=== PATIENT | male | born 1985 | race Hispanic/Latino ===

== ENCOUNTER 2025-04-16 05:33 | Emergency (ER) | payer SELFPAY ==
[2025-04-16 05:38] VITALS: PULSE 92; RESP 18; TEMP 36.6; O2SAT 97
--- NOTE | 2025-04-16 05:59 | ED_ITS ---
HPI - General Adult General Chief complaint: Abdominal Pain Stated complaint: abd pain Time Seen by Provider: 04/16/25 05:55 History of Present Illness HPI narrative: Patient is a 40-year-old gentleman presents emergency department with chief complaint of epigastric abdominal pain. Patient reports he has history of gastritis reports that he takes omeprazole and probiotics the patient states that he does not have a GI doctor and does not have a current primary care doctor patient reports that over last several days he has had worsening discomfort in the epigastric region patient reports that it is not improved by anything the patient reports right now it is mild Related Data Allergies Allergy/AdvReac Type Severity Reaction Status Date / Time No Known Allergies Allergy Verified 04/16/25 06:08 Review of Systems 2 Review of Systems: A 10 system review of systems was completed on the patient and is negative except for what is stated in the HPI. Nursing and ancillary documentation was reviewed. Exam 2 Narrative: GENERAL: Well-appearing, well-nourished, and in no acute distress. HEAD: Normocephalic, atraumatic. EYES: PERRLA and EOMI. ENT: Nares clear, no rhinorrhea or epistaxis. Mucous membranes moist. NECK: Supple. CHEST: Clear to auscultation. No respiratory distress. HEART: Regular rate and rhythm. No murmur heard. Normal peripheral pulses. ABDOMEN: Soft, for all the tenderness to palpation in the epigastric region, nondistended, normal active bowel sounds. EXTREMITIES: Normal range of motion. No edema. SKIN: Warm, dry, no rash. NEURO: No focal deficits. Alert and oriented x3. PSYCH: Normal mood and affect. Course Vital Signs Vital signs: Vital Signs Temperature 36.6 C 04/16/25 05:38 Pulse Rate 92 04/16/25 05:38 Respiratory Rate 18 04/16/25 05:38 Pulse Oximetry 97 04/16/25 05:38 Oxygen Delivery Room Air 04/16/25 05:38 Temperature 36.6 C 04/16/25 06:04 Pulse Rate 80 04/16/25 06:04 Respiratory Rate 16 04/16/25 06:04 Blood Pressure 134/91 H 04/16/25 06:04 Pulse Oximetry 97 04/16/25 06:04 Oxygen Delivery Room Air 04/16/25 05:38 Medical Decision Making [facility] Narrative Medical decision making narrative: Differential diagnosis includes gastritis, pancreatitis, cholecystitis Patient had a normal CBC CMP showed normal liver enzymes lipase was normal The patient was given Protonix and a GI cocktail in the emergency department patient be discharged home on Protonix given a prescription for Carafate and will be referred to primary care Vital Signs Vital Signs: Vital Signs Temperature 36.6 C 04/16/25 05:38 Pulse Rate 92 04/16/25 05:38 Respiratory Rate 18 04/16/25 05:38 Pulse Oximetry 97 04/16/25 05:38 Oxygen Delivery Room Air 04/16/25 05:38 Temperature 36.6 C 04/16/25 06:04 Pulse Rate 80 04/16/25 06:04 Respiratory Rate 16 04/16/25 06:04 Blood Pressure 134/91 H 04/16/25 06:04 Pulse Oximetry 97 04/16/25 06:04 Oxygen Delivery Room Air 04/16/25 05:38 Lab Data 04/16/25 05:57 04/16/25 05:57 Labs: Lab Results 04/16/25 04/16/25 Range/Units 05:57 06:02 WBC 8.6 (4.5-10.0) K/mm3 RBC 5.99 (4.6-6.20) M/mm3 Hgb 17.9 (14.0-18.0) g/dL Hct 52.9 H (42.0-52.0) % MCV 88.3 (80-100) fl MCH 29.9 (26-34) pg MCHC 33.8 (32-36) g/dl RDW 13.1 (11.5-14.5) % Plt Count 264 (150-375) k/mm3 MPV 9.6 (7.4-10.4) fl Immature Gran % (Auto) 0.2 (0-0.5) % Neut % (Auto) 54.0 (45.5-73.1) % Lymph % (Auto) 33.5 (18.3-44.2) % [place] % (Auto) 9.9 H (2.6-8.5) % Eos % (Auto) 1.8 (0-4.4) % Baso % (Auto) 0.6 (0.2-1.2) % Lymph # (Auto) 2.87 (0.9-3.2) K/mm3 [place] # (Auto) 0.9 H (0.1-0.6) K/mm3 Eos # (Auto) 0.2 (0-0.3) K/mm3 Baso # (Auto) 0.1 (0.0-0.1) K/mm3 Abs Immat Gran (auto) 0.02 (0.00-0.031) K/mm3 Absolute Neuts (auto) 4.6 (1.3-6.7) K/mm3 Absolute Nucleated RBC 0.000 (0.0-0.012) K/mm3 Nucleated RBC % 0.0 (0.0-0.2) % Sodium 135 L (137-145) mmol/L Potassium 4.0 (3.4-5.0) mmol/L Chloride 99 (98-107) mmol/L Carbon Dioxide 25 (22-30) mmol/L Anion Gap 11 (4-12) mmol/L BUN 15 (9-20) mg/dL Creatinine 0.96 (0.7-1.3) mg/dL Estim Creat Clear Calc 115 ml/min Estimated GFR > 60 (59 - ) Glucose 100 (65-110) mg/dL Calcium 9.4 (8.4-10.2) mg/dL Total Bilirubin 0.6 (0.2-1.3) mg/dL AST 36 (17-59) U/L ALT 36 (6-50) U/L Alkaline Phosphatase 92 (38-126) U/L Total Protein 8.5 H (6.3-8.2) g/dL Albumin 4.5 (3.5-5.1) g/dL Lipase 81 (23-300) U/L Urine Color Yellow (Yellow) Urine Appearance Clear (Clear) Urine pH 5.5 (5.0-9.0) Ur Specific [place] 1.018 (1.001-1.035) Urine Protein Negative (Negative) mg/dL Urine Glucose (UA) Negative (Negative) mg/dL Urine Ketones Negative (Negative) mg/dL Ur Blood (Man) Negative (Negative) Urine Nitrate Negative (Negative) Urine Bilirubin Negative (Negative) Urine Urobilinogen 0.2 (<2.0) mg/dL Leukocyte Esterase Rfl Negative (Negative) SAEED/UL Discharge Plan Discharge Clinical Impression: Gastritis Patient Disposition: Home Condition: Stable Instructions: Antibiotic Form, Gastritis (ED), Abdominal Pain (ED) Patient Language: Estonian Prescriptions: New pantoprazole [Protonix] 40 mg tablet,delayed release (DR/EC) 40 mg PO HS 28 Days Qty: 28 0RF sucralfate [Carafate] 1 gram tablet 1 g PO Q6H PRN (Reason: abdominal pain) Qty: 40 0RF Follow-up/Referrals: Hitesh Jean Baptiste MD [Physician, Family Practice] UNKNOWN,DOCTOR [Primary Care Provider] Time of Disposition: 06:52
[2025-04-16 06:04] VITALS: BP 134/91; PULSE 80; RESP 16; TEMP 36.6; O2SAT 97
[2025-04-16] MEDS: BELLADONNA ALK/PHENOB ELIX 10 ML, MAG HYDROX/ALUMINUM HYD/SIMETH 30 ML, LIDOCAINE 2% VI... PO (06:09)
[2025-04-16] MEDS: PANTOPRAZOLE SODIUM IV 40 MG VIAL IV PUSH (06:13)
[2025-04-16 06:15] LABS: Hematocrit 52.9 % (42.0-52.0); Hemoglobin 17.9 g/dL (14.0-18.0); Immature Granulocyte Percent A 0.2 % (0-0.5); Lymphocytes Absolute Auto 2.87 K/mm3 (0.9-3.2); Mean Corpuscular HGB Conc 33.8 g/dl (32-36); Mean Corpuscular Hemoglobin 29.9 pg (26-34); Mean Corpuscular Volume 88.3 fl (80-100); Nucleated Red Blood Cells Absolute Auto 0.000 K/mm3 (0.0-0.012); Nucleated Red Blood Cells Perc 0.0 % (0.0-0.2); Platelet Count Result 264 k/mm3 (150-375); Red Blood Count 5.99 M/mm3 (4.6-6.20); White Blood Count 8.6 K/mm3 (4.5-10.0)
[2025-04-16 06:18] LABS: Add Urine Microscopic? NO; Appearance Urine Clear (Clear); Glucose Urine UA Negative (Negative); Leukocyte Esterase Ur Negative LEU/UL (Negative); Nitrate Urine Negative (Negative); Specific Grav Ur 1.018 (1.001-1.035)
[2025-04-16 06:34] LABS: Alanine Aminotransferase 36 U/L (6-50); Albumin Level 4.5 g/dL (3.5-5.1); Alkaline Phosphatase 92 U/L (38-126); Anion Gap 11 mmol/L (4-12); Aspartate Amino Transferase 36 U/L (17-59); Bilirubin,Total 0.6 mg/dL (0.2-1.3); Blood Urea Nitrogen 15 mg/dL (9-20); Calcium 9.4 mg/dL (8.4-10.2); Carbon Dioxide 25 mmol/L (22-30); Chloride 99 mmol/L (98-107); Estimated CRCL calculation 115 ml/min; Estimated Glomerular Filt Rate > 60; Glucose 100 mg/dL (65-110); Lipase 81 U/L (23-300); Potassium 4.0 mmol/L (3.4-5.0); Sodium 135 mmol/L (137-145); Total Protein 8.5 g/dL (6.3-8.2)
[2025-04-16 07:05] VITALS: BP 131/88; PULSE 97; RESP 18; O2SAT 99
== END 2025-04-16 07:10 | disposition home or self-care (01) ==
LOC: ANHED 07:02
PROVIDERS: Emergency Provider Emergency Medicine
DX: K29.50 Unspecified chronic gastritis without bleeding (principal)
CPT/HCPCS: 36415; 80053; 81003; 83690; 85025; 96374; 99284; A9270; J2470

== ENCOUNTER 2025-06-17 05:07 | Emergency (ER) | payer SELFPAY ==
[2025-06-17 05:11] VITALS: PULSE 82; RESP 18; TEMP 36.8; O2SAT 98
[2025-06-17 05:22] VITALS: BP 132/88; PULSE 84; RESP 18; TEMP 36.8; O2SAT 98
--- NOTE | 2025-06-17 05:29 | ED_ITS ---
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 Patient presents to the emergency department with epigastric abdominal discomfort he states feels like his gastritis with increasing pain. Symptoms worsening for 2 days but he has been dealing with this for several months and most of the year. Has not established with Gastroenterology at. Pending his Protonix at home without much relief. No other new symptoms. No recent antibiotics. No significant alcohol intake. No nausea, vomiting presently. No abdominal pain in the lower quadrants or back pain. No traumatic injuries. Was otherwise in his normal state of health. Related Data Allergies Allergy/AdvReac Type Severity Reaction Status Date / Time No Known Allergies Allergy Verified 06/17/25 05:23 Review of Systems 2 Review of Systems: As reviewed above in HPI Exam 2 Narrative: GENERAL: [Well-appearing, well-nourished, and in no acute distress.] HEAD: [Normocephalic, atraumatic.] EYES: [PERRLA and EOMI.] ENT: Nares clear, no rhinorrhea or epistaxis. Mucous membranes moist. NECK: Supple. CHEST: [Clear to auscultation. No respiratory distress.] HEART: [Regular rate and rhythm]. No murmur heard. [Normal peripheral pulses.] ABDOMEN: [Soft, nondistended], [nontender], [No rigidity or guarding] EXTREMITIES: Normal range of motion. [No edema.] SKIN: Warm, dry, no rash. NEURO: [No focal deficits]. 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 Patient presents to the emergency department with epigastric abdominal discomfort he states feels like his gastritis with increasing pain. Symptoms worsening for 2 days but he has been dealing with this for several months and most of the year. Has not established with Gastroenterology at. Pending his Protonix at home without much relief. No other new symptoms. No recent antibiotics. No significant alcohol intake. No nausea, vomiting presently. No abdominal pain in the lower quadrants or back pain. No traumatic injuries. Was otherwise in his normal state of health. Patient is hemodynamically stable with normal vital signs. Examination is benign with a soft nontender nondistended abdomen. Symptoms consistent with gastritis based on physical in history. Will treat him symptomatically and obtain basic laboratory studies and lipase to rule out pancreatitis, LFT elevations, leukocytosis or infectious process. No current indications for advanced CT imaging and will re-evaluate after treatments. Laboratory studies are unremarkable. No leukocytosis or anemia. Normal platelet count. Electrolytes are normal. Normal renal function. Normal glucose. Normal LFTs. Normal lipase, normal urinalysis. Patient had some interval improvement in symptoms after room 1st dose of medications. Requesting additional medications. He was given Toradol for analgesia. He is not unremarkable workup and will need follow-up with Gastroenterology. Given GI referral and safe for discharge with return precautions. Medical Records Attestation: I reviewed the patient's medical records. Lab Data Attestation: I reviewed the patient's lab results. 06/17/25 05:27 06/17/25 05:27 Labs: Lab Results 06/17/25 06/17/25 Range/Units 05:22 05:27 WBC 8.9 (4.5-10.0) K/mm3 RBC 5.88 (4.6-6.20) M/mm3 Hgb 17.6 (14.0-18.0) g/dL Hct 52.0 (42.0-52.0) % MCV 88.4 (80-100) fl MCH 29.9 (26-34) pg MCHC 33.8 (32-36) g/dl RDW 13.0 (11.5-14.5) % Plt Count 268 (150-375) k/mm3 MPV 9.7 (7.4-10.4) fl Immature Gran % (Auto) 0.3 (0-0.5) % Neut % (Auto) 56.8 (45.5-73.1) % Lymph % (Auto) 30.9 (18.3-44.2) % [place] % (Auto) 9.8 H (2.6-8.5) % Eos % (Auto) 1.7 (0-4.4) % Baso % (Auto) 0.5 (0.2-1.2) % Lymph # (Auto) 2.74 (0.9-3.2) K/mm3 [place] # (Auto) 0.9 H (0.1-0.6) K/mm3 Eos # (Auto) 0.2 (0-0.3) K/mm3 Baso # (Auto) 0.0 (0.0-0.1) K/mm3 Abs Immat Gran (auto) 0.03 (0.00-0.031) K/mm3 Absolute Neuts (auto) 5.0 (1.3-6.7) K/mm3 Absolute Nucleated RBC 0.000 (0.0-0.012) K/mm3 Nucleated RBC % 0.0 (0.0-0.2) % Sodium 135 L (137-145) mmol/L Potassium 4.2 (3.4-5.0) mmol/L Chloride 99 (98-107) mmol/L Carbon Dioxide 27 (22-30) mmol/L Anion Gap 9 (4-12) mmol/L BUN 9 D (9-20) mg/dL Creatinine 0.88 (0.7-1.3) mg/dL Estim Creat Clear Calc 130 ml/min Estimated GFR > 60 (59 - ) Glucose 106 (65-110) mg/dL Calcium 8.9 (8.4-10.2) mg/dL Total Bilirubin 1.0 (0.2-1.3) mg/dL AST 30 (17-59) U/L ALT 22 (6-50) U/L Alkaline Phosphatase 70 (38-126) U/L Total Protein 8.3 H (6.3-8.2) g/dL Albumin 4.6 (3.5-5.1) g/dL Lipase 105 (23-300) U/L Urine Color Yellow (Yellow) Urine Appearance Clear (Clear) Urine pH 6.0 (5.0-9.0) Ur Specific [place] 1.018 (1.001-1.035) Urine Protein Negative (Negative) mg/dL Urine Glucose (UA) Negative (Negative) mg/dL Urine Ketones Negative (Negative) mg/dL Ur Blood (Man) Negative (Negative) Urine Nitrate Negative (Negative) Urine Bilirubin Negative (Negative) Urine Urobilinogen 0.2 (<2.0) mg/dL Leukocyte Esterase Rfl Negative (Negative) SAEED/UL Discharge Plan Discharge Clinical Impression: Gastritis Patient Disposition: Home Condition: Stable Instructions: Antibiotic Form, Gastritis (DC), Diet for Stomach Ulcers and Gastritis (ED) Additional Instructions: Symptoms consistent with gastritis. You will need to see a senior business process analyst for further evaluation with endoscopy. Please contact the provided senior business process analyst for an outpatient visit. Continue taking your home medications and we have prescribed you some different options for therapies. Return with any emergent or worsening concerns. Patient Language: Panamanian Prescriptions: New famotidine [Pepcid] 20 mg tablet 20 mg PO BID Qty: 20 0RF dicyclomine 20 mg tablet 20 mg PO TID PRN (Reason: abdominal pain) Qty: 14 0RF No Action pantoprazole [Protonix] 40 mg tablet,delayed release (DR/EC) 40 mg PO HS 28 Days Qty: 28 0RF sucralfate [Carafate] 1 gram tablet 1 g PO Q6H PRN (Reason: abdominal pain) Qty: 40 0RF Follow-up/Referrals: Shaun Tyson MD [Physician, Gastroenterology] - 3 Days Referral Note: Recurrent gastritis UNKNOWN,DOCTOR [Primary Care Provider] Time of Disposition: 07:03
[2025-06-17 05:34] LABS: Add Urine Microscopic? NO; Appearance Urine Clear (Clear); Glucose Urine UA Negative (Negative); Leukocyte Esterase Ur Negative LEU/UL (Negative); Nitrate Urine Negative (Negative); Specific Grav Ur 1.018 (1.001-1.035)
[2025-06-17 05:34] LABS: Hematocrit 52.0 % (42.0-52.0); Hemoglobin 17.6 g/dL (14.0-18.0); Immature Granulocyte Percent A 0.3 % (0-0.5); Lymphocytes Absolute Auto 2.74 K/mm3 (0.9-3.2); Mean Corpuscular HGB Conc 33.8 g/dl (32-36); Mean Corpuscular Hemoglobin 29.9 pg (26-34); Mean Corpuscular Volume 88.4 fl (80-100); Nucleated Red Blood Cells Absolute Auto 0.000 K/mm3 (0.0-0.012); Nucleated Red Blood Cells Perc 0.0 % (0.0-0.2); Platelet Count Result 268 k/mm3 (150-375); Red Blood Count 5.88 M/mm3 (4.6-6.20); White Blood Count 8.9 K/mm3 (4.5-10.0)
[2025-06-17 05:46] VITALS: BP 132/88; PULSE 87; RESP 14; O2SAT 98
[2025-06-17 05:50] LABS: Alanine Aminotransferase 22 U/L (6-50); Albumin Level 4.6 g/dL (3.5-5.1); Alkaline Phosphatase 70 U/L (38-126); Anion Gap 9 mmol/L (4-12); Aspartate Amino Transferase 30 U/L (17-59); Bilirubin,Total 1.0 mg/dL (0.2-1.3); Blood Urea Nitrogen 9 mg/dL (9-20); Calcium 8.9 mg/dL (8.4-10.2); Carbon Dioxide 27 mmol/L (22-30); Chloride 99 mmol/L (98-107); Estimated CRCL calculation 130 ml/min; Estimated Glomerular Filt Rate > 60; Glucose 106 mg/dL (65-110); Lipase 105 U/L (23-300); Potassium 4.2 mmol/L (3.4-5.0); Sodium 135 mmol/L (137-145); Total Protein 8.3 g/dL (6.3-8.2)
[2025-06-17] MEDS: MAG HYDROX/AL HYDROX/SIMETH 30 ML UDC PO (06:00)
[2025-06-17] MEDS: SUCRALFATE SUSP 100 MG/ML 10 ML UDC 1000 MG PO (06:00)
[2025-06-17 06:31] VITALS: BP 114/82; PULSE 83; RESP 18; O2SAT 95
[2025-06-17] MEDS: KETOROLAC 30 MG/ML VIAL (*BKC) IV PUSH (07:01)
[2025-06-17 07:33] VITALS: BP 114/82; PULSE 77; RESP 14; O2SAT 99
== END 2025-06-17 07:36 | disposition home or self-care (01) ==
PROVIDERS: Emergency Provider Student in an Organized Health Care Education/Training Program
DX: K29.70 Gastritis, unspecified, without bleeding (principal)
CPT/HCPCS: 36415; 80053; 81003; 83690; 85025; 96374; 99284; A9270; J1885

== ENCOUNTER 2025-06-18 16:48 | Emergency (ER) | payer SELFPAY ==
--- NOTE | ~2025-06-18 | XR_ITS ---
EXAMINATION: XR chest 2V 06/18/2025 19:22 INDICATION: Lower chest pain PROCEDURE: 2 view chest COMPARISON: No prior studies for comparison. FINDINGS: The lungs are clear. The cardiomediastinal silhouette is within normal limits. There are no pleural effusions. There is no pneumothorax suspected. IMPRESSION: 1: NO ACUTE CARDIOPULMONARY DISEASE. Reviewed, dictated and finalized at location O. LINER MAKER
--- NOTE | ~2025-06-18 | CT_ITS ---
EXAMINATION: CT abdomen pelvis w con DATE: 06/18/2025 20:35 INDICATION: Abdominal pain TECHNIQUE: Computed tomography (CT) of the abdomen and pelvis was performed with 100 cc Omnipaque 350 intravenous contrast. The dose-length product was 924.17 mGy-cm. Automated exposure control and iterative reconstruction technique were employed. COMPARISON: None. FINDINGS: Lung bases are unremarkable. No significant pleural or pericardial effusion. Heart size normal. No significant vascular abnormality. No lymphadenopathy. No free air or free fluid. Normal appendix. Fatty infiltration of the liver. The spleen, pancreas, adrenal glands and kidneys are unremarkable. No significant vascular abnormality. Gallbladder is present. No acute osseous abnormality. No pelvic masses or fluid collections. No hydronephrosis. IMPRESSION: 1. No acute abdominal abnormality. Reviewed, dictated and finalized at location O. ERIZER TENDER
[2025-06-18 17:01] VITALS: BP 137/87; PULSE 80; RESP 16; TEMP 36.8; O2SAT 99
--- NOTE | 2025-06-18 18:48 | ECG_ITS ---
Test Date: 2025-06-18 19:00:16 Measurements Intervals [place] Rate: 76 P: 14 [place]: 132 QRS: 36 QRSD: 94 T: 40 QT: 365 QTc: 413 Interpretive Statements SINUS RHYTHM No previous ECG available for comparison Electronically Signed On 06-18-2025 21:28:21 JEWELRY SALES COORDINATOR by Shimon Gomez M.D.
--- NOTE | 2025-06-18 18:51 | ED_ITS ---
HPI - Abdominal Pain General Chief Complaint: Abdominal Pain Stated Complaint: abdominal pain Time Seen by Provider: 06/18/25 18:13 History of Present Illness HPI narrative: Patient is a 40-year-old male who presents to the ER with gastritis symptoms. He reports he was seen in the the ER 2 days ago with the same symptoms. Patient reports he was given prescriptions for medications, which he has picked up, but they have not helped relieve his symptoms. He endorses midsternal pain that worsens when he lays flat. Patient also endorses a feeling of abdominal fullness. He reports he is a cigarette smoker and only drinks a small amount of alcohol. Patient endorses a history of GERD but denies any other medical history relevant to this ER visit. He denies any back pain, urinary symptoms, or vomiting. Patient does not endorse nausea and has been unable to keep anything down for the past 2 days. Related Data Allergies Allergy/AdvReac Type Severity Reaction Status Date / Time No Known Allergies Allergy Verified 06/17/25 05:23 Review of Systems 2 Review of Systems: All systems reviewed & are unremarkable except as noted in HPI and below Exam 2 Narrative: GENERAL: Well appearing, well-nourished, non-toxic, in no acute distress. HEAD: Normocephalic, atraumatic. NECK: Supple. No adenopathy, no masses. RESPIRATORY: Airway patent, respirations nonlabored. Clear to auscultation bilaterally, no rales, rhonchi, wheezing. CARDIOVASCULAR: Regular rate and rhythm without murmurs, rubs, or gallops. Peripheral pulses 2+ and equal bilaterally. ABDOMINAL: Soft, nontender, nondistended, no hepatosplenomegaly. Normoactive BS. MUSCULOSKELETAL: Moves all extremities. Strength/ROM intact without gross deformities. SKIN: Warm, dry, normal color. No rashes. NEURO: A&O X3. Speech clear. Cranial nerves II-XII intact. No ataxic movements. PSYCHIATRIC: Appropriate mood and affect. Normal interaction. Course Vital Signs Vital signs: Vital Signs Temperature 36.8 C 06/18/25 17:01 Pulse Rate 80 06/18/25 17:01 Respiratory Rate 16 06/18/25 17:01 Blood Pressure 137/87 06/18/25 17:01 Pulse Oximetry 99 06/18/25 17:01 Temperature 36.8 C 06/18/25 17:01 Pulse Rate 75 06/18/25 18:57 Respiratory Rate 15 06/18/25 18:57 Blood Pressure 137/88 06/18/25 18:57 Pulse Oximetry 97 06/18/25 18:57 MDM - Abdominal Pain MDM Narrative Medical decision making narrative: Patient is a 40-year-old male who presents to the ER with gastritis symptoms. He reports he was seen in the the ER 2 days ago with the same symptoms. Patient reports he was given prescriptions for medications, which he has picked up, but they have not helped relieve his symptoms. He endorses midsternal pain that worsens when he lays flat. Patient also endorses a feeling of abdominal fullness. He reports he is a cigarette smoker and only drinks a small amount of alcohol. Patient endorses a history of GERD but denies any other medical history relevant to this ER visit. He denies any back pain, urinary symptoms, or vomiting. Patient does not endorse nausea and has been unable to keep anything down for the past 2 days. Labs Ordered: CBC, CMP, D-dimer, troponin, lactic acid, lipase, UA Imaging Ordered: Chest x-ray, CT abdomen pelvis Medications Ordered: 1 L normal saline IV bolus, Toradol 30 mg IV, Zofran 4 mg IV, Pepcid 20 mg IV, Protonix 40 mg IV, GI cocktail Results: Patient's CT scan indicates Lung bases are unremarkable. No significant pleural or pericardial effusion. Heart size normal. No significant vascular abnormality. No lymphadenopathy. No free air or free fluid. Normal appendix. Fatty infiltration of the liver. The spleen, pancreas, adrenal glands and kidneys are unremarkable. No significant vascular abnormality. Gallbladder is present. No acute osseous abnormality. No pelvic masses or fluid collections. No hydronephrosis. Diagnosis: GERD, gastritis Consults: Gastroenterology (already established) Patient Education/Shared MDM: Results of lab work and imaging shared with patient. They endorses improvement of symptoms following medication administration. Patient strongly advised to maintain hydration status upon discharge and follow-up with their PCP as soon as possible. They will be discharged home with a prescription for . Strict return precautions provided. Patient verbalized understanding and is in agreement with plan. Vital signs stable at time of discharge. All questions answered. Differential Diagnosis Differential diagnosis: Likely abdominal pain, calculus of kidney, constipation, gastroenteritis, pancreatitis and small bowel obstruction Lab Data Attestation: I reviewed the patient's lab results. 06/18/25 19:09 06/18/25 19:09 Labs: Lab Results 06/18/25 06/18/25 Range/Units 19:09 19:27 WBC 10.3 H (4.5-10.0) K/mm3 RBC 5.63 (4.6-6.20) M/mm3 Hgb 17.1 (14.0-18.0) g/dL Hct 49.4 (42.0-52.0) % MCV 87.7 (80-100) fl MCH 30.4 (26-34) pg MCHC 34.6 (32-36) g/dl RDW 12.9 (11.5-14.5) % Plt Count 257 (150-375) k/mm3 MPV 9.6 (7.4-10.4) fl Immature Gran % (Auto) 0.4 (0-0.5) % Neut % (Auto) 64.2 (45.5-73.1) % Lymph % (Auto) 22.6 (18.3-44.2) % [place] % (Auto) 11.2 H (2.6-8.5) % Eos % (Auto) 1.0 (0-4.4) % Baso % (Auto) 0.6 (0.2-1.2) % Lymph # (Auto) 2.33 (0.9-3.2) K/mm3 [place] # (Auto) 1.2 H (0.1-0.6) K/mm3 Eos # (Auto) 0.1 (0-0.3) K/mm3 Baso # (Auto) 0.1 (0.0-0.1) K/mm3 Abs Immat Gran (auto) 0.04 H (0.00-0.031) K/mm3 Absolute Neuts (auto) 6.6 (1.3-6.7) K/mm3 Absolute Nucleated RBC 0.000 (0.0-0.012) K/mm3 Nucleated RBC % 0.0 (0.0-0.2) % D-Dimer < 0.27 (<0.48) ug/mL Sodium 134 L (137-145) mmol/L Potassium 3.9 (3.4-5.0) mmol/L Chloride 100 (98-107) mmol/L Carbon Dioxide 28 (22-30) mmol/L Anion Gap 6 (4-12) mmol/L BUN 10 (9-20) mg/dL Creatinine 0.84 (0.7-1.3) mg/dL Estim Creat Clear Calc 114 ml/min Estimated GFR > 60 (59 - ) Glucose 101 (65-110) mg/dL Lactic Acid 0.9 (0.7-2.0) mmol/L Calcium 8.7 (8.4-10.2) mg/dL Total Bilirubin 0.7 (0.2-1.3) mg/dL AST 33 (17-59) U/L ALT 24 (6-50) U/L Alkaline Phosphatase 75 (38-126) U/L Troponin I < 0.012 (0.000-0.034) ng/mL Total Protein 7.8 (6.3-8.2) g/dL Albumin 4.3 (3.5-5.1) g/dL Lipase 54 (23-300) U/L Urine Color Yellow (Yellow) Urine Appearance Clear (Clear) Urine pH 7.0 (5.0-9.0) Ur Specific [place] 1.012 (1.001-1.035) Urine Protein Negative (Negative) mg/dL Urine Glucose (UA) Negative (Negative) mg/dL Urine Ketones Negative (Negative) mg/dL Ur Blood (Man) Negative (Negative) Urine Nitrate Negative (Negative) Urine Bilirubin Negative (Negative) Urine Urobilinogen 0.2 (<2.0) mg/dL Leukocyte Esterase Rfl Negative (Negative) SAEED/UL Imaging Data Attestation: I personally reviewed and interpreted this imaging study as follows: Radiologist's impression: ITS Impressions Chest X-Ray 06/18/25 19:23 IMPRESSION: 1: NO ACUTE CARDIOPULMONARY DISEASE. Abdomen/Pelvis CT 06/18/25 20:38 IMPRESSION: 1. No acute abdominal abnormality. Discharge Plan Discharge Clinical Impression: Gastritis, Gastric reflux Patient Disposition: Home Condition: Stable Instructions: Antibiotic Form, Gastritis (ED), Diet for Stomach Ulcers and Gastritis (ED) Additional Instructions: Please return to the ER with any worsening symptoms. Follow-up with Gastroenterology as soon as possible. Take all medications as prescribed. You may add Tylenol as needed for pain control. Patient Language: Burundian Prescriptions: No Action pantoprazole [Protonix] 40 mg tablet,delayed release (DR/EC) 40 mg PO HS 28 Days Qty: 28 0RF sucralfate [Carafate] 1 gram tablet 1 g PO Q6H PRN (Reason: abdominal pain) Qty: 40 0RF famotidine [Pepcid] 20 mg tablet 20 mg PO BID Qty: 20 0RF dicyclomine 20 mg tablet 20 mg PO TID PRN (Reason: abdominal pain) Qty: 14 0RF Follow-up/Referrals: Shaun Tyson MD [Physician, Gastroenterology] UNKNOWN,DOCTOR [Primary Care Provider] Stand Alone Forms: Work/School Release IP
[2025-06-18 18:57] VITALS: BP 137/88; PULSE 75; RESP 15; O2SAT 97
[2025-06-18] MEDS: SODIUM CHLORIDE 0.9% IV 1,000 ML 999 ML IV CONT (19:11)
[2025-06-18] MEDS: ONDANSETRON INJ 4 MG/2 ML VIAL IV PUSH (19:12)
[2025-06-18] MEDS: PANTOPRAZOLE SODIUM IV 40 MG VIAL IV PUSH (19:12)
[2025-06-18] MEDS: FAMOTIDINE 20 MG/2 ML VIAL IV PUSH (19:13)
[2025-06-18] MEDS: KETOROLAC 30 MG/ML VIAL (*BKC) IV PUSH (19:14)
[2025-06-18 19:16] LABS: Hematocrit 49.4 % (42.0-52.0); Hemoglobin 17.1 g/dL (14.0-18.0); Immature Granulocyte Percent A 0.4 % (0-0.5); Lymphocytes Absolute Auto 2.33 K/mm3 (0.9-3.2); Mean Corpuscular HGB Conc 34.6 g/dl (32-36); Mean Corpuscular Hemoglobin 30.4 pg (26-34); Mean Corpuscular Volume 87.7 fl (80-100); Nucleated Red Blood Cells Absolute Auto 0.000 K/mm3 (0.0-0.012); Nucleated Red Blood Cells Perc 0.0 % (0.0-0.2); Platelet Count Result 257 k/mm3 (150-375); Red Blood Count 5.63 M/mm3 (4.6-6.20); White Blood Count 10.3 K/mm3 (4.5-10.0)
[2025-06-18 19:39] LABS: Troponin I < 0.012 ng/mL (0.000-0.034)
[2025-06-18 19:42] LABS: Alanine Aminotransferase 24 U/L (6-50); Albumin Level 4.3 g/dL (3.5-5.1); Alkaline Phosphatase 75 U/L (38-126); Anion Gap 6 mmol/L (4-12); Aspartate Amino Transferase 33 U/L (17-59); Bilirubin,Total 0.7 mg/dL (0.2-1.3); Blood Urea Nitrogen 10 mg/dL (9-20); Calcium 8.7 mg/dL (8.4-10.2); Carbon Dioxide 28 mmol/L (22-30); Chloride 100 mmol/L (98-107); Estimated CRCL calculation 114 ml/min; Estimated Glomerular Filt Rate > 60; Glucose 101 mg/dL (65-110); Lipase 54 U/L (23-300); Potassium 3.9 mmol/L (3.4-5.0); Sodium 134 mmol/L (137-145); Total Protein 7.8 g/dL (6.3-8.2)
[2025-06-18 19:50] LABS: Add Urine Microscopic? NO; Appearance Urine Clear (Clear); Glucose Urine UA Negative (Negative); Leukocyte Esterase Ur Negative LEU/UL (Negative); Nitrate Urine Negative (Negative); Specific Grav Ur 1.012 (1.001-1.035)
[2025-06-18] MEDS: BELLADONNA ALK/PHENOB ELIX 10 ML, MAG HYDROX/ALUMINUM HYD/SIMETH 30 ML, LIDOCAINE 2% VI... PO (22:39)
[2025-06-18 22:46] VITALS: BP 132/75; PULSE 74; RESP 20; TEMP 36.7; O2SAT 100
== END 2025-06-18 22:47 | disposition home or self-care (01) ==
PROVIDERS: Emergency Provider Registered Nurse
DX: K29.70 Gastritis, unspecified, without bleeding (principal); K21.9 Gastro-esophageal reflux disease without esophagitis; F17.210 Nicotine dependence, cigarettes, uncomplicated
CPT/HCPCS: 36415; 71046; 74177; 80053; 81003; 83605; 83690; 84484; 85025; 85380; 93005; 96361; 96374; 96375; 99284; A9270; J1885; J2405; J2470; J7030; Q9967

== ENCOUNTER 2025-06-20 08:32 | Emergency (ER) | payer SELFPAY ==
[2025-06-20] VITALS (8 sets, daily range): BP systolic 114–134; BP diastolic 79–89; PULSE 64–79; RESP 12–18; TEMP 36.8; O2SAT 94–99
--- NOTE | ~2025-06-20 | US_ITS ---
ULTRASOUND ABDOMEN LIMITED (RIGHT UPPER QUADRANT) Clinical History: epigastric abdominal pain Comparison: CT abdomen and pelvis 06/18/2025 Technique: Right upper quadrant sonography Findings: Liver: Enlarged. Echogenic. No intrahepatic biliary ductal dilatation. Normal hepatopedal flow main portal vein. Common Duct: Normal caliber. 5 mm. Gallbladder: No stones. No wall thickening. No pericholecystic fluid. Pancreas: Obscured by bowel gas. IMPRESSION: 1. No acute findings. Reviewed, dictated and finalized at location [facility]. [facility] IMPRESSION: 1. No acute findings.
[2025-06-20 09:59] LABS: Hematocrit 46.8 % (42.0-52.0); Hemoglobin 16.1 g/dL (14.0-18.0); Immature Granulocyte Percent A 0.3 % (0-0.5); Lymphocytes Absolute Auto 2.18 K/mm3 (0.9-3.2); Mean Corpuscular HGB Conc 34.4 g/dl (32-36); Mean Corpuscular Hemoglobin 30.3 pg (26-34); Mean Corpuscular Volume 88.1 fl (80-100); Nucleated Red Blood Cells Absolute Auto 0.000 K/mm3 (0.0-0.012); Nucleated Red Blood Cells Perc 0.0 % (0.0-0.2); Platelet Count Result 243 k/mm3 (150-375); Red Blood Count 5.31 M/mm3 (4.6-6.20); White Blood Count 7.6 K/mm3 (4.5-10.0)
[2025-06-20 10:00] LABS: Add Urine Microscopic? NO; Appearance Urine Clear (Clear); Glucose Urine UA Negative (Negative); Leukocyte Esterase Ur Negative LEU/UL (Negative); Nitrate Urine Negative (Negative); Specific Grav Ur 1.012 (1.001-1.035)
--- NOTE | 2025-06-20 10:27 | ECG_ITS ---
Test Date: 2025-06-20 11:13:47 Measurements Intervals [place] Rate: 64 P: 20 [place]: 122 QRS: 46 QRSD: 94 T: 46 QT: 392 QTc: 407 Interpretive Statements SINUS RHYTHM Compared to ECG 06/18/2025 19:00:16 No significant changes Electronically Signed On 06-20-2025 11:32:23 TRAP PULLER by Luis Jimenez M.D.
[2025-06-20 10:37] LABS: Alanine Aminotransferase 27 U/L (6-50); Albumin Level 4.2 g/dL (3.5-5.1); Alkaline Phosphatase 70 U/L (38-126); Anion Gap 6 mmol/L (4-12); Aspartate Amino Transferase 33 U/L (17-59); Bilirubin,Total 0.6 mg/dL (0.2-1.3); Blood Urea Nitrogen 12 mg/dL (9-20); Calcium 8.6 mg/dL (8.4-10.2); Carbon Dioxide 28 mmol/L (22-30); Chloride 100 mmol/L (98-107); Estimated CRCL calculation 138 ml/min; Estimated Glomerular Filt Rate > 60; Glucose 102 mg/dL (65-110); Lipase 54 U/L (23-300); Potassium 3.7 mmol/L (3.4-5.0); Sodium 134 mmol/L (137-145); Total Protein 7.3 g/dL (6.3-8.2)
--- NOTE | 2025-06-20 10:39 | ED_ITS ---
HPI - Abdominal Pain General Chief Complaint: Abdominal Pain Stated Complaint: abdominal pain Time Seen by Provider: 06/20/25 09:18 Source: patient Mode of arrival: ambulatory Limitations: language barrier (Using stratus physician's aide) History of Present Illness HPI narrative: This is a 40-year-old male that presents to the emergency department for epigastric abdominal pain. Ongoing over the last couple of months. Reports the pain is intermittent in nature, feels bloated. He has been taking pantoprazole without relief. He does have an appointment to see GI, but it is not until July. Reports some nausea and vomiting. Denies fevers. Related Data Allergies Allergy/AdvReac Type Severity Reaction Status Date / Time No Known Allergies Allergy Verified 06/20/25 08:50 Review of Systems 2 Review of Systems: All systems reviewed & are unremarkable except as noted in HPI and below PMFSH Social History Social History (Updated 06/20/25 @ 10:45 by Maty Singh PA-C) Alcohol intake: never Exam 2 Narrative: GENERAL: Well-appearing, well-nourished, and in no acute distress. HEAD: Normocephalic, atraumatic. EYES: EOMI. CHEST: Clear to auscultation. No respiratory distress. No wheezes rales or rhonchi HEART: Regular rate and rhythm. No murmur heard. Normal peripheral pulses. ABDOMEN: Soft, nondistended, normal active bowel sounds. Mild tenderness to palpation in the epigastrium, without guarding EXTREMITIES: Normal range of motion. No edema. SKIN: Warm, dry, no rash. NEURO: No focal deficits. Alert and oriented x3. PSYCH: Normal mood and affect Course Vital Signs Vital signs: Vital Signs Temperature 98.3 F 06/20/25 08:50 Pulse Rate 70 06/20/25 08:50 Respiratory Rate 16 06/20/25 08:50 Blood Pressure 134/79 06/20/25 08:50 Pulse Oximetry 98 06/20/25 08:50 Oxygen Delivery Room Air 06/20/25 08:50 Temperature 98.3 F 06/20/25 08:50 Pulse Rate 79 06/20/25 13:51 Respiratory Rate 18 06/20/25 13:51 Blood Pressure 126/87 06/20/25 13:51 Pulse Oximetry 97 06/20/25 13:51 Oxygen Delivery Room Air 06/20/25 08:50 MDM - Abdominal Pain MDM Narrative Medical decision making narrative: Patient presents to the ER for epigastric abdominal pain. Ongoing over the last couple of months. He is afebrile and nontoxic appearing. His vitals are stable. Cbc without leukocytosis. Metabolic panel without concerning findings. Lipase is normal. EKG without acute ST changes, baseline troponin is negative. Urine without evidence of infection. Right upper quadrant ultrasound without acute findings. Patient had CT abdomen pelvis 2 days ago without acute findings. Patient does have follow-up with GI. Will increase his pantoprazole to twice a day. He was given warnings to return to the ER Differential Diagnosis Differential diagnosis: Likely gastroenteritis and other (gastritis, biliary colic, GERD) Lab Data Attestation: I reviewed the patient's lab results. 06/20/25 09:49 06/20/25 09:49 Labs: Lab Results 06/20/25 Range/Units 09:49 WBC 7.6 (4.5-10.0) K/mm3 RBC 5.31 (4.6-6.20) M/mm3 Hgb 16.1 (14.0-18.0) g/dL Hct 46.8 (42.0-52.0) % MCV 88.1 (80-100) fl MCH 30.3 (26-34) pg MCHC 34.4 (32-36) g/dl RDW 12.8 (11.5-14.5) % Plt Count 243 (150-375) k/mm3 MPV 9.5 (7.4-10.4) fl Immature Gran % (Auto) 0.3 (0-0.5) % Neut % (Auto) 58.7 (45.5-73.1) % Lymph % (Auto) 28.6 (18.3-44.2) % [place] % (Auto) 10.6 H (2.6-8.5) % Eos % (Auto) 1.4 (0-4.4) % Baso % (Auto) 0.4 (0.2-1.2) % Lymph # (Auto) 2.18 (0.9-3.2) K/mm3 [place] # (Auto) 0.8 H (0.1-0.6) K/mm3 Eos # (Auto) 0.1 (0-0.3) K/mm3 Baso # (Auto) 0.0 (0.0-0.1) K/mm3 Abs Immat Gran (auto) 0.02 (0.00-0.031) K/mm3 Absolute Neuts (auto) 4.5 (1.3-6.7) K/mm3 Absolute Nucleated RBC 0.000 (0.0-0.012) K/mm3 Nucleated RBC % 0.0 (0.0-0.2) % Sodium 134 L (137-145) mmol/L Potassium 3.7 (3.4-5.0) mmol/L Chloride 100 (98-107) mmol/L Carbon Dioxide 28 (22-30) mmol/L Anion Gap 6 (4-12) mmol/L BUN 12 (9-20) mg/dL Creatinine 0.81 (0.7-1.3) mg/dL Estim Creat Clear Calc 138 ml/min Estimated GFR > 60 (59 - ) Glucose 102 (65-110) mg/dL Calcium 8.6 (8.4-10.2) mg/dL Total Bilirubin 0.6 (0.2-1.3) mg/dL AST 33 (17-59) U/L ALT 27 (6-50) U/L Alkaline Phosphatase 70 (38-126) U/L Troponin I < 0.012 (0.000-0.034) ng/mL Total Protein 7.3 (6.3-8.2) g/dL Albumin 4.2 (3.5-5.1) g/dL Lipase 54 (23-300) U/L Urine Color Yellow (Yellow) Urine Appearance Clear (Clear) Urine pH 7.5 (5.0-9.0) Ur Specific [place] 1.012 (1.001-1.035) Urine Protein Negative (Negative) mg/dL Urine Glucose (UA) Negative (Negative) mg/dL Urine Ketones Negative (Negative) mg/dL Ur Blood (Man) Negative (Negative) Urine Nitrate Negative (Negative) Urine Bilirubin Negative (Negative) Urine Urobilinogen 0.2 (<2.0) mg/dL Leukocyte Esterase Rfl Negative (Negative) SAEED/UL Imaging Data Radiologist's impression: ITS Impressions Upper Quadrant Ultrasound 06/20/25 13:04 IMPRESSION: 1. No acute findings. ECG Data EKG #1: ECG completion date: 06/20/25 normal rate, sinus rhythm, no ST changes and normal QT Critical Care Time Critical Care Time Critical Care Time: No Discharge Plan Discharge Clinical Impression: Abdominal pain, epigastric Patient Disposition: Home Condition: Stable Instructions: Diet for Stomach Ulcers and Gastritis (ED), Epigastric Pain (ED) Additional Instructions: Return to the ER if you experience fever, abdominal pain with nausea and vomiting, you are unable to keep down liquids or solids, or any other symptoms that are concerning to you Avoid spicy/acidic foods. Avoid alcohol. Avoid anti-inflammatories (Aleve, ibuprofen, naproxen, etc). Take pantoprazole twice daily Follow up with Gastroenterology Patient Language: Sinhala Prescriptions: New pantoprazole 40 mg tablet,delayed release (DR/EC) 40 mg PO HS 28 Days Qty: 28 0RF No Action pantoprazole [Protonix] 40 mg tablet,delayed release (DR/EC) 40 mg PO HS 28 Days Qty: 28 0RF sucralfate [Carafate] 1 gram tablet 1 g PO Q6H PRN (Reason: abdominal pain) Qty: 40 0RF famotidine [Pepcid] 20 mg tablet 20 mg PO BID Qty: 20 0RF dicyclomine 20 mg tablet 20 mg PO TID PRN (Reason: abdominal pain) Qty: 14 0RF Follow-up/Referrals: Dinesh Catalan MD [Physician, Gastroenterology] UNKNOWN,DOCTOR [Primary Care Provider]
[2025-06-20 10:56] LABS: Troponin I < 0.012 ng/mL (0.000-0.034)
[2025-06-20] MEDS: FAMOTIDINE 20 MG/2 ML VIAL IV PUSH (11:23)
[2025-06-20] MEDS: PANTOPRAZOLE SODIUM IV 40 MG VIAL IV PUSH (11:23)
[2025-06-20] MEDS: ONDANSETRON INJ 4 MG/2 ML VIAL IV PUSH (11:23)
== END 2025-06-20 13:52 | disposition home or self-care (01) ==
PROVIDERS: Emergency Provider Physician Assistant
DX: R10.13 Epigastric pain (principal)
CPT/HCPCS: 36415; 76705; 80053; 81003; 83690; 84484; 85025; 93005; 96374; 96375; 99284; J2405; J2470